=== PATIENT | male | born 1950 | race Caucasian/White ===

== ENCOUNTER 2016-12-11 08:50 | Day surgery (SDC) | payer OTHER ==
[2016-12-11] MEDS ORDERED: LACTATED RINGERS 1,000 ML IV ONE ×2 (09:05→12:20)
[2016-12-11] MEDS ORDERED: fentaNYL 250 MCG/5 ML VIAL IVP ONE (12:25)
[2016-12-11] MEDS ORDERED: MIDAZOLAM 2 MG/2 ML VIAL IVP ONE (12:25)
== END 2016-12-11 08:51 | disposition home or self-care (01) ==
PROC: 0DBN8ZX Excision of Sigmoid Colon, Via Natural or Artificial Opening Endoscopic, Diagnostic (ICD-10-PCS; principal; 2016-12-11 10:00)
DX: Z12.11 Encounter for screening for malignant neoplasm of colon (principal); D12.5 Benign neoplasm of sigmoid colon; K57.30 Diverticulosis of large intestine without perforation or abscess without bleeding; K64.8 Other hemorrhoids; I10 Essential (primary) hypertension; Z79.82 Long term (current) use of aspirin; Z80.8 Family history of malignant neoplasm of other organs or systems; Z82.49 Family history of ischemic heart disease and other diseases of the circulatory system; Z80.52 Family history of malignant neoplasm of bladder
CPT/HCPCS: 45380; J3010; J7120

== ENCOUNTER 2018-09-16 08:26 | Outpatient (CLI) | payer OTHER ==
[2018-09-16 12:17] LABS: BASOPHILS % (AUTO) 0.9 %; EOSINOPHILS # (AUTO) 0.2 10^3/uL (0.0-0.7); EOSINOPHILS % (AUTO) 3.7 %; HGB - HEMOGLOBIN 13.7 g/dL (14.0-18.0); LYMPHOCYTES # (AUTO) 1.7 10^3/uL (1.5-3.5); LYMPHOCYTES % (AUTO) 33.4 %; MEAN CORPUSCULAR HEMOGLOBIN 29.8 pg (27.0-31.0); MEAN CORPUSCULAR HGB CONC 35.7 g/dL (32.0-36.0); MEAN CORPUSCULAR VOLUME 83.5 fL (80.0-94.0); MEAN PLATELET VOLUME 8.3 fL (7.4-11.4); MONOCYTES # (AUTO) 0.4 10^3/uL (0.0-1.0); MONOCYTES % (AUTO) 7.6 %; NEUTROPHILS # (AUTO) 2.8 10^3/uL (1.5-6.6); NEUTROPHILS % (AUTO) 54.4 %; PLT - PLATELET COUNT 160 10^3/uL (130-450); RED BLOOD COUNT 4.59 10^6/uL (4.70-6.10); RED CELL DISTRIBUTION WIDTH 13.8 % (12.0-15.0); WHITE BLOOD COUNT 5.1 x10^3/uL (4.8-10.8)
[2018-09-16 13:15] LABS: ALBUMIN 3.8 g/dL (3.2-5.5); ALBUMIN/GLOBULIN RATIO 1.4 (1.0-2.2); ALKALINE PHOSPHATASE 57 IU/L (42-121); ALT ALANINE AMINOTRANSFERASE 25 IU/L (10-60); AST ASPARTATE AMINOTRANSFERASE 26 IU/L (10-42); BILIRUBIN,TOTAL 0.3 mg/dL (0.2-1.0); BUN - BLOOD UREA NITROGEN 15 mg/dL (6-20); CALCIUM 8.6 mg/dL (8.5-10.3); CARBON DIOXIDE - CO2 27 mmol/L (21-32); CHLORIDE 106 mmol/L (101-111); CHOLESTEROL 133 mg/dL; CREATININE 1.1 mg/dL (0.6-1.2); GFR - MDRD 66 (>89); GLUCOSE 95 mg/dL (70-100); HDL CHOLESTEROL 45 mg/dL; LDL CHOLESTEROL,CALCULATED 76 mg/dL; LDL/HDL RATIO 1.7 (<3.6); SODIUM 138 mmol/L (135-145); TOTAL PROTEIN 6.5 g/dL (6.7-8.2); VLDL CHOLESTEROL 12 mg/dL
== END 2018-09-16 23:59 | disposition home or self-care (01) ==
LOC: LAB.WCP 08:26
PROVIDERS: ATTEND Family Medicine
DX: I10 Essential (primary) hypertension (principal); Z79.899 Other long term (current) drug therapy; Z12.5 Encounter for screening for malignant neoplasm of prostate; R74.8 Abnormal levels of other serum enzymes
CPT/HCPCS: 36415; 80053; 80061; 82150; 83721; 84153; 84443; 85025

== ENCOUNTER 2018-09-20 11:23 | Outpatient (CLI) | payer OTHER ==
[2018-09-20 17:17] LABS: BILIRUBIN,URINE NEGATIVE (NEGATIVE); GLUCOSE, URINE (UA) NEGATIVE (NEGATIVE); KETONES,URINE (UA) NEGATIVE (NEGATIVE); LEUKOCYTE ESTERASE, URINE NEGATIVE (NEGATIVE); NITRITE,URINE NEGATIVE (NEGATIVE); OCCULT BLOOD,URINE NEGATIVE (NEGATIVE); PROTEIN,URINE NEGATIVE (NEGATIVE); UROBILINOGEN,URINE 0.2 (NORMAL) E.U./dL (NORMAL)
[2018-09-20 17:27] LABS: CLARITY,URINE CLEAR (CLEAR)
[2018-09-20 17:28] LABS: BACTERIA,URINE None Seen /HPF (None Seen); RBC,URINE None Seen /HPF (0-5); SQUAMOUS EPITHELIAL CELL,UR NONE SEEN (<= Few)
== END 2018-09-20 23:59 | disposition home or self-care (01) ==
LOC: LAB.WCP 11:23
PROVIDERS: ATTEND Family Medicine
DX: R74.8 Abnormal levels of other serum enzymes (principal); I10 Essential (primary) hypertension
CPT/HCPCS: 81001; 81599; 82150; 82570

== ENCOUNTER 2019-01-26 00:02 | Emergency (ER) | payer OTHER ==
[2019-01-26 00:11] VITALS: BP 173/96
--- NOTE | 2019-01-26 01:02 | ED Physician Documentation ---
History of Present Illness - Stated complaint Stated Complaint: EYE PX - Chief complaint Chief Complaint: Heent - History obtained from History obtained from: Patient - History of Present Illness Timing: Prior to arrival - Additonal information Additional information: Patient is a 68-year-old male with history of eye disease presenting with right eye discomfort after rubbing it earlier tonight. Patient reports being outside and gardening earlier today and is concerned about possibly accidentally scratching his eye this evening. Patient denies significant changes in vision. He reports poor vision in both eyes chronically. He states that he normally gets injections in the eye, but is unable to further identify his underlying disease process such as back or degeneration or glaucoma. Patient does not wear contacts, but does wear reading glasses. Patient reports watery discharge from the right eye, as well as mild conjunctival erythema. Patient also reports mild right upper and lower eyelid swelling and erythema. Patient states that his pain is when his eyelid is closed only.No other worsening or improving factors to his symptoms noted. Review of Systems Eyes: reports: Irritation. denies: Loss of vision, Discharge PD PAST MEDICAL HISTORY - Past Medical History Cardiovascular: Hypertension Respiratory: None Endocrine/Autoimmune: None GI: None : None HEENT: Other Psych: None Musculoskeletal: None Derm: None - Past Surgical History General: Colonoscopy Neuro: Other HEENT: Other - Present Medications Home Medications: Ambulatory Orders Medication Instructions Recorded Confirmed RX: Lisinopril 20 mg ORAL DAILY 12/08/16 12/11/16 Aspirin [Aspir-Low] 81 mg PO DAILY 12/11/16 12/11/16 Erythromycin Base [Erythromycin 1 gm OP Q6HR 5 Days #1 oint...g. 01/26/19 Ophthalmic Ointment] - Allergies Allergies/Adverse Reactions: Allergies Allergy/AdvReac Type Severity Reaction Status Date / Time No Known Drug Allergies Allergy Verified 01/26/19 00:08 - Social History Does the pt smoke?: No Smoking Status: Never smoker PD ED PE NORMAL - General General: Alert and oriented X 3, No acute distress, Well developed/nourished - HEENT HEENT: Atraumatic, PERRL (Left eye unremarkable. Mild periorbital swelling and erythema, likely due to rubbing, of right eye. Eversion of right upper and lower eyelids did not reveal foreign body. Fluorescein exam of right eye reveals mild uptake centrally. No nystagmus or pain with extraocular movements of right eye. Pupils unremarkable.OD:20/70, OS: 20/30, OU:20/25), EOMI - Respiratory Respiratory: No respiratory distress - Derm Derm: Normal color, Warm and dry, No rash - Extremities Extremities: No deformity, No tenderness to palpate - Neuro Neuro: Alert and oriented X 3, No motor deficit, No sensory deficit - Psych Psych: Normal mood, Normal affect Results - Vitals Vitals: Vital Signs - 24 hr 01/26/19 00:06 Temperature 36.3 C L Heart Rate 61 Respiratory 16 Rate Blood Pressure 173/96 H O2 Saturation 99 Oxygen O2 Source Room air PD MEDICAL DECISION MAKING - ED course Complexity details: considered differential, d/w patient ED course: Most concerning for foreign body or corneal abrasion given mechanism of injury. Patient does report history of poor vision and eye issues in both eyes, but cannot further specify. Did not feel the patient is experiencing acute glaucoma, acute complication of macular degeneration, vascular occlusion, or central complication. Do not find evidence of uveitis, iritis, conjunctivitis. Do not find retained foreign body, but do see a small area of likely corneal abrasion. Discussed this etiology, as well as treatment for such, supportive cares, return precautions, need for close follow-up. Patient reports that he will follow-up with his community action worker in the next several days. Otherwise, patient is c omfortable with this discharge plan. Departure - Departure Disposition: 01 Home, Self Care Clinical Impression: Corneal abrasion Condition: Good Instructions: ED Eye Injury Corneal Abrasion Follow-Up: your,community action worker [Other] - Within 3 Days Prescriptions: Erythromycin Base [Erythromycin Ophthalmic Ointment] 1 gm OP Q6HR 5 Days #1 oint...g. Comments: May apply ice to help with eyelid swelling, as well as take ibuprofen, Tylenol, Excedrin as needed to help relieve discomfort. Please use eye ointment as instructed to help heal corneal abrasion and prevent infection. Please follow- up with your assistant auditor or community action worker in the next 2 to 3 days return to ED sooner if experience worsening symptoms or other concerns. Discharge Date/Time: 01/26/19 01:27
[2019-01-26] MEDS ORDERED: PROPARACAINE 0.5% OPHTH DROPS 15 ML RIGHTEYE STA (01:06)
== END 2019-01-26 01:27 | disposition home or self-care (01) ==
LOC: ED 00:02
DX: S05.01XA Injury of conjunctiva and corneal abrasion without foreign body, right eye, initial encounter (principal); X58.XXXA Exposure to other specified factors, initial encounter; Y93.H2 Activity, gardening and landscaping; I10 Essential (primary) hypertension; Z79.82 Long term (current) use of aspirin
CPT/HCPCS: 99283; J3490

== ENCOUNTER 2019-05-12 16:29 | Outpatient (CLI) | payer OTHER ==
--- NOTE | 2019-05-14 16:14 | Ultrasound Report ---
Reason: HTN,DIZZINESS Procedure Date: 05/12/2019 Accession Number: [id number] / [id number] Procedure: US - Carotid Doppler Complete CPT Code: FULL RESULT: EXAM: BILATERAL CAROTID AND VERTEBRAL ARTERY DUPLEX DOPPLER ULTRASOUND: EXAM DATE: 05/12/2019 05:00 PM CLINICAL HISTORY: Hypertension. Dizziness. COMPARISON: None. TECHNIQUE: Grayscale imaging, color Doppler, and duplex spectral Doppler were used to evaluate the carotid and vertebral arteries bilaterally. Static images were obtained. FINDINGS: Minimal plaque is identified in the carotid arteries bilaterally. Normal antegrade flow is present in bilateral vertebral arteries. VELOCITIES (cm/sec): Right CCA mid: PSV 64 cm/sec CCA dist: PSV 62 cm/sec ICA prox: PSV 40 cm/sec, EDV 11.9 cm/sec ICA mid: PSV 48 cm/sec, EDV 22.4 cm/sec ICA dist: PSV 50.8 cm/sec, EDV 20 cm/sec ECA: PSV 68 cm/sec Vert: PSV 62 cm/sec ICA/CCA: .8 Left CCA mid: PSV 62 cm/sec CCA dist: PSV 76 cm/sec ICA prox: PSV 63 cm/sec, EDV 16 cm/sec ICA mid: PSV 45 cm/sec, EDV 23 cm/sec ICA dist: PSV 74 cm/sec, EDV 31 cm/sec ECA: PSV 85 cm/sec Vert: PSV 69 cm/sec ICA/CCA: 1 ICA diameter stenosis: Right: <50% by velocity and <70% by NASCET criteria. Left: <50% by velocity and <70% by NASCET criteria. IMPRESSION: 1. Minimal bilateral carotid artery plaquing. 2. In the right carotid artery there are no elevated carotid artery velocities to suggest hemodynamically significant stenosis. 3. In the left carotid artery there are no elevated carotid artery velocities to suggest hemodynamically significant stenosis. 4. Normal antegrade flow is present in bilateral vertebral arteries. General Recommendations: Stenosis =50% ICA - Follow-up ultrasound 6-12 months Stenosis <50% ICA - High Risk Patient with plaque - Follow-up ultrasound 1-2 years Normal Study but High Risk Patient - Follow-up ultrasound 3-5 years Management recommendations and diagnostic criteria are based on current IAC endorsed standards in Carotid Artery Stenosis: Grayscale and Doppler Ultrasound Diagnosis. Validated velocity measurements with angiographic measurements and velocity criteria are extrapolated from diameter data as defined by the Society of Radiologists in Ultrasound Consensus Conference Radiology 2003; 229;340-346. RADIA
== END 2019-05-12 16:30 | disposition home or self-care (01) ==
LOC: DI 16:29
PROVIDERS: ATTEND Family Medicine
DX: I10 Essential (primary) hypertension (principal); R42 Dizziness and giddiness
CPT/HCPCS: 93880

== ENCOUNTER 2019-09-12 08:22 | Outpatient (CLI) | payer OTHER ==
[2019-09-12 12:40] LABS: BASOPHILS % (AUTO) 0.6 %; EOSINOPHILS # (AUTO) 0.2 10^3/uL (0.0-0.7); EOSINOPHILS % (AUTO) 3.4 %; HGB - HEMOGLOBIN 14.3 g/dL (14.0-18.0); LYMPHOCYTES # (AUTO) 1.7 10^3/uL (1.5-3.5); LYMPHOCYTES % (AUTO) 31.4 %; MEAN CORPUSCULAR HEMOGLOBIN 28.9 pg (27.0-31.0); MEAN CORPUSCULAR HGB CONC 33.2 g/dL (32.0-36.0); MEAN CORPUSCULAR VOLUME 87.2 fL (80.0-94.0); MEAN PLATELET VOLUME 10.2 fL (7.4-11.4); MONOCYTES # (AUTO) 0.5 10^3/uL (0.0-1.0); MONOCYTES % (AUTO) 9.1 %; NEUTROPHILS # (AUTO) 2.9 10^3/uL (1.5-6.6); NEUTROPHILS % (AUTO) 54.9 %; PLT - PLATELET COUNT 154 10^3/uL (130-450); RED BLOOD COUNT 4.94 10^6/uL (4.70-6.10); RED CELL DISTRIBUTION WIDTH 13.7 % (12.0-15.0); WHITE BLOOD COUNT 5.3 x10^3/uL (4.8-10.8)
[2019-09-12 12:56] LABS: ALBUMIN 4.2 g/dL (3.2-5.5); ALBUMIN/GLOBULIN RATIO 1.4 (1.0-2.2); ALKALINE PHOSPHATASE 54 IU/L (42-121); ALT ALANINE AMINOTRANSFERASE 24 IU/L (10-60); AST ASPARTATE AMINOTRANSFERASE 21 IU/L (10-42); BILIRUBIN,TOTAL 0.7 mg/dL (0.2-1.0); BUN - BLOOD UREA NITROGEN 23 mg/dL (6-20); CALCIUM 8.9 mg/dL (8.5-10.3); CARBON DIOXIDE - CO2 28 mmol/L (21-32); CHLORIDE 105 mmol/L (101-111); CHOL/HDL RATIO 3.7 (<5.0); CHOLESTEROL 151 mg/dL; CREATININE 1.2 mg/dL (0.6-1.2); GFR - MDRD 60 (>89); GLUCOSE 93 mg/dL (70-100); HDL CHOLESTEROL 41 mg/dL; LDL CHOLESTEROL,CALCULATED 96 mg/dL; LDL/HDL RATIO 2.3 (<3.6); SODIUM 138 mmol/L (135-145); TOTAL PROTEIN 7.2 g/dL (6.7-8.2); VLDL CHOLESTEROL 14 mg/dL
== END 2019-09-12 23:59 | disposition home or self-care (01) ==
LOC: LAB.WCP 08:22
PROVIDERS: ATTEND Physician Assistant Medical
DX: I10 Essential (primary) hypertension (principal)
CPT/HCPCS: 36415; 80053; 80061; 83721; 85025

== ENCOUNTER 2021-08-10 08:00 | Outpatient (CLI) | payer OTHER | END 2021-08-10 23:59 | disposition home or self-care (01) | LOC: LAB.N 08:00 | PROVIDERS: ATTEND Physician Assistant | DX: U07.1 COVID-19 (principal) | CPT/HCPCS: 87070 ==

== ENCOUNTER 2021-08-12 09:23 | Emergency (ER) | payer OTHER ==
--- NOTE | 2021-08-12 09:42 | ED Physician Documentation ---
History of Present Illness - Stated complaint Stated Complaint: COVID - Chief complaint Chief Complaint: Resp - History obtained from History obtained from: Patient - Additonal information Additional information: This is a relatively healthy 70-year-old gentleman who presents via private vehicle requesting antibody therapy for coronavirus. He was not vaccinated against coronavirus. He has been sick for 5 days with body aches and sore throat. Mild cough. No shortness of breath or fevers. Tested 2 days ago and positive. Review of Systems Constitutional: reports: Chills, Myalgias, Fatigue Nose: denies: Rhinorrhea / runny nose Throat: reports: Sore throat GI: denies: Abdominal Pain, Nausea, Diarrhea PD PAST MEDICAL HISTORY - Past Medical History Cardiovascular: Hypertension Respiratory: None Endocrine/Autoimmune: None GI: None : None HEENT: Other Psych: None Musculoskeletal: None Derm: None - Past Surgical History General: Colonoscopy Neuro: Other HEENT: Other - Present Medications Home Medications: Ambulatory Orders Medication Instructions Recorded Confirmed Lisinopril 20 mg ORAL DAILY 12/08/16 12/11/16 Aspirin [Aspir-Low] 81 mg PO DAILY 12/11/16 12/11/16 Erythromycin Base [Erythromycin 1 gm OP Q6HR 5 Days #1 oint...g. 01/26/19 Ophthalmic Ointment] - Allergies Allergies/Adverse Reactions: Allergies Allergy/AdvReac Type Severity Reaction Status Date / Time No Known Drug Allergies Allergy Verified 08/12/21 09:35 - Social History Does the pt smoke?: No Smoking Status: Never smoker PD ED PE NORMAL - Vitals Vital signs reviewed: Yes - General General: Alert and oriented X 3, No acute distress - Cardiac Cardiac: RRR, No murmur - Respiratory Respiratory: No respiratory distress, Clear bilaterally - Abdomen Abdomen: Non tender - Derm Derm: Normal color, Warm and dry - Neuro Neuro: Alert and oriented X 3, Normal speech Results - Vitals Vitals: Vital Signs - 24 hr 08/12/21 10:38 Temperature 37.4 C Heart Rate 88 Respiratory 18 Rate Blood Pressure 140/86 H O2 Saturation 95 Oxygen O2 Source Room air PD MEDICAL DECISION MAKING - ED course ED course: Mab therapy for this patient with Covid was considered and discussed with the patient. The patient was provided the handout: ``Casirivimab plus Imdevimab Fact Sheet for Patients, Parents and Caregivers, and the information within was discussed with the patient. The patient was informed of alternatives prior to receiving Mab therapy. The patient was informed that these medications are unapproved drugs that are authorized for use under Emergency Use Authorization by the FDA. The patient will be monitored for at least 1 hour after infusion is complete. Departure - Departure Disposition: Home, Self Care Clinical Impression: COVID-19 Condition: Stable Record reviewed to determine appropriate education?: Yes Instructions: ED Viral Syndrome Comments: You were seen today for COVID-19. Thankfully you are not too sick at this point. You received monoclonal antibody therapy with [facility]. Your period of mandatory quarantine extends 2 weeks from last Sunday. I do strongly recommend in the future vaccination against COVID-19, the mRNA vaccines are very safe and well-tolerated and effective and Covid is still kil ling people. Return if you worsen or see blood oxygen levels persistently below 92% or so.
[2021-08-12] MEDS ORDERED: CASIRIVIMAB/IMDEVIMAB 10 ML in SODIUM CHLORIDE 0.9% 50 ML IV ONE (10:15)
[2021-08-12 11:48] VITALS: BP 145/87
== END 2021-08-12 11:52 | disposition home or self-care (01) ==
LOC: ED 09:23
DX: U07.1 COVID-19 (principal); I10 Essential (primary) hypertension; Z79.82 Long term (current) use of aspirin
CPT/HCPCS: 99281; 99283; J7040; M0243; Q0244

== ENCOUNTER 2021-10-21 07:09 | Outpatient (CLI) | payer OTHER ==
[2021-10-21 11:51] LABS: BASOPHILS # (AUTO) 0.1 10^3/uL (0.0-0.1); BASOPHILS % (AUTO) 0.9 %; EOSINOPHILS # (AUTO) 0.2 10^3/uL (0.0-0.7); EOSINOPHILS % (AUTO) 3.7 %; HCT - HEMATOCRIT 41.4 % (42.0-52.0); HGB - HEMOGLOBIN 13.8 g/dL (14.0-18.0); LYMPHOCYTES # (AUTO) 1.7 10^3/uL (1.5-3.5); LYMPHOCYTES % (AUTO) 30.4 %; MEAN CORPUSCULAR HEMOGLOBIN 29.3 pg (27.0-31.0); MEAN CORPUSCULAR HGB CONC 33.3 g/dL (32.0-36.0); MEAN CORPUSCULAR VOLUME 87.9 fL (80.0-94.0); MEAN PLATELET VOLUME 10.8 fL (7.4-11.4); MONOCYTES # (AUTO) 0.5 10^3/uL (0.0-1.0); MONOCYTES % (AUTO) 9.4 %; NEUTROPHILS # (AUTO) 3.1 10^3/uL (1.5-6.6); NEUTROPHILS % (AUTO) 55.1 %; PLT - PLATELET COUNT 169 10^3/uL (130-450); RED BLOOD COUNT 4.71 10^6/uL (4.70-6.10); RED CELL DISTRIBUTION WIDTH 13.4 % (12.0-15.0); WHITE BLOOD COUNT 5.6 x10^3/uL (4.8-10.8)
[2021-10-21 12:13] LABS: ALBUMIN 3.9 g/dL (3.2-5.5); ALBUMIN/GLOBULIN RATIO 1.5 (1.0-2.2); ALKALINE PHOSPHATASE 53 IU/L (42-121); ALT ALANINE AMINOTRANSFERASE 27 IU/L (10-60); AST ASPARTATE AMINOTRANSFERASE 24 IU/L (10-42); BILIRUBIN,TOTAL 0.7 mg/dL (0.2-1.0); BUN - BLOOD UREA NITROGEN 20 mg/dL (6-20); CALCIUM 8.9 mg/dL (8.5-10.3); CARBON DIOXIDE - CO2 28 mmol/L (21-32); CHLORIDE 104 mmol/L (101-111); CHOL/HDL RATIO 2.8 (<5.0); CHOLESTEROL 134 mg/dL; CREATININE 1.1 mg/dL (0.6-1.2); GFR - MDRD 66 (>89); GLUCOSE 94 mg/dL (70-100); HDL CHOLESTEROL 48 mg/dL; LDL CHOLESTEROL,CALCULATED 75 mg/dL; LDL/HDL RATIO 1.6 (<3.6); POTASSIUM 4.4 mmol/L (3.5-5.0); SODIUM 139 mmol/L (135-145); TOTAL PROTEIN 6.5 g/dL (6.7-8.2); TRIGLYCERIDES 56 mg/dL; VLDL CHOLESTEROL 11 mg/dL
[2021-10-21 12:27] LABS: THYROID STIMULATING HORMONE 2.85 uIU/mL (0.34-5.60)
== END 2021-10-21 07:10 | disposition home or self-care (01) ==
LOC: LAB.N 07:09
PROVIDERS: ATTEND Physician Assistant Medical
DX: I10 Essential (primary) hypertension (principal); Z12.5 Encounter for screening for malignant neoplasm of prostate; R74.8 Abnormal levels of other serum enzymes
CPT/HCPCS: 36415; 80053; 80061; 82150; 83721; 84153; 84443; 85025

== ENCOUNTER 2021-11-09 15:11 | Outpatient (CLI) | payer OTHER ==
--- NOTE | 2021-11-09 16:39 | Ultrasound Report ---
PROCEDURE: Abdomen Limited INDICATIONS: HYPERAMYLASEMIA TECHNIQUE: Real-time focused scanning was performed of the abdomen, with image documentation. COMPARISON: January 05, 2010. FINDINGS: AORTA: The visualized abdominal aorta is normal. IVC: The visualized IVC is normal. LIVER: Heterogeneous echotexture of the liver. Measures 13.5 cm in length. A 1.2 x 1.4 x 1.1 cm ech ogenic focus is seen in the right hepatic lobe, most consistent with a hemangioma. PANCREAS: The visualized portions of the pancreas are normal. Gallbladder and biliary tree: No gallbladder wall thickening, pericholecystic fluid, or shadowing g allstones. The common bile duct measures 4.4 mm. RIGHT KIDNEY: Normal in appearance with no hydronephrosis. Measuring 12.1 cm in length. The renal c ortex thickness measures 1.7 cm. No ascites. IMPRESSION: 1.No acute right upper quadrant sonographic abnormality. Reviewed by: Johnnie Ordonez MD on 11/09/2021 4:38 PM PST Approved by: Johnnie Ordonez MD on 11/09/2021 4:38 PM PST Station ID: [id number]
== END 2021-11-09 15:12 | disposition home or self-care (01) ==
LOC: DI 15:11
PROVIDERS: ATTEND Physician Assistant Medical
DX: R74.8 Abnormal levels of other serum enzymes (principal); Z80.8 Family history of malignant neoplasm of other organs or systems

== ENCOUNTER 2022-03-29 09:15 | Outpatient (CLI) | payer OTHER ==
--- NOTE | 2022-03-29 14:10 | XRAY Report ---
PROCEDURE: Thoracic Spine 3 View INDICATIONS: LUMBAGO TECHNIQUE: 3 views of the thoracic spine were acquired. COMPARISON: None. FINDINGS: Bones: No fractures or dislocations. Chronic mild intervertebral disc height loss and mild to modera te osteophytosis. No suspicious bony lesions. 12 pairs of ribs are noted, and appear intact where vi sualized. Soft tissues: No paravertebral stripe thickening. IMPRESSION: 1. No thoracic fractures. 2. Mild degenerative changes. Reviewed by: Martita Darling MD on 03/29/2022 2:09 PM PDT Approved by: Martita Darling MD on 03/29/2022 2:09 PM PDT Station ID: [id number]
--- NOTE | 2022-03-29 14:11 | XRAY Report ---
PROCEDURE: Lumbar Spine 2 View INDICATIONS: LUMBAGO TECHNIQUE: 3 views of the lumbar spine were acquired. COMPARISON: None. FINDINGS: Bones: 5 [id number]-mlaafss vertebrae are present. Mild L2-3 disc height loss and trace retrolisthesis . Mild L1-2 disc height loss. Mild anterior bridging osteophytes at all levels. There is normal bony alignment. No vertebral body compression fractures. No suspicious bony lesions. Soft tissues: Overlying bowel gas pattern is normal. No suspicious soft tissue calcifications. IMPRESSION: 1. Mild degenerative changes. Reviewed by: Martita Darling MD on 03/29/2022 2:10 PM PDT Approved by: Martita Darling MD on 03/29/2022 2:10 PM PDT Station ID: [id number]
== END 2022-03-29 09:16 | disposition home or self-care (01) ==
LOC: DI.N 09:15
PROVIDERS: ATTEND Physician Assistant Medical
DX: M51.34 Other intervertebral disc degeneration, thoracic region (principal); M47.814 Spondylosis without myelopathy or radiculopathy, thoracic region; M51.36 Other intervertebral disc degeneration, lumbar region; M47.816 Spondylosis without myelopathy or radiculopathy, lumbar region; M43.16 Spondylolisthesis, lumbar region

== ENCOUNTER 2022-07-17 08:00 | Outpatient (CLI) | payer OTHER ==
--- NOTE | 2022-07-17 14:17 | XRAY Report ---
PROCEDURE: Finger(s) LT INDICATIONS: L 4TH DIGIT PX AND SWELLING TECHNIQUE: AP hand, 2 views of the fourth finger(s) acquired. COMPARISON: None. FINDINGS: Bones: No fractures or dislocations. Interphalangeal joint space narrowing. No suspicious bony lesio ns. Soft tissues: No suspicious soft tissue calcifications. IMPRESSION: No fourth digit fracture demonstrated. Mild to moderate degenerative change. Reviewed by: Lencho Carlton MD on 07/17/2022 2:15 PM PDT Approved by: Lencho Carlton MD on 07/17/2022 2:15 PM PDT Station ID: [id number]
== END 2022-07-17 23:59 | disposition home or self-care (01) ==
LOC: DI.N 08:00
PROVIDERS: ATTEND Physician Assistant
DX: M19.042 Primary osteoarthritis, left hand (principal)

== ENCOUNTER 2022-08-17 13:00 | Outpatient (CLI) | payer OTHER ==
[2022-08-17 18:22] LABS: ALBUMIN/GLOBULIN RATIO 1.4 (1.0-2.2); BILIRUBIN,TOTAL 0.5 mg/dL (0.2-1.0); CALCIUM 9.2 mg/dL (8.5-10.3); CREATININE 1.2 mg/dL (0.6-1.2); POTASSIUM 4.7 mmol/L (3.5-5.0); TOTAL PROTEIN 6.8 g/dL (6.7-8.2)
== END 2022-08-17 13:01 | disposition home or self-care (01) ==
LOC: LAB.N 13:00
PROVIDERS: ATTEND Physician Assistant Medical
DX: B35.2 Tinea manuum (principal)
CPT/HCPCS: 36415; 80053

== ENCOUNTER 2023-10-31 14:35 | Outpatient (CLI) | payer OTHER ==
[2023-10-31 18:04] LABS: BASOPHILS # (AUTO) 0.1 10^3/uL (0.0-0.1); BASOPHILS % (AUTO) 0.9 %; EOSINOPHILS # (AUTO) 0.1 10^3/uL (0.0-0.7); EOSINOPHILS % (AUTO) 2.1 %; HCT - HEMATOCRIT 40.9 % (42.0-52.0); HGB - HEMOGLOBIN 13.8 g/dL (14.0-18.0); LYMPHOCYTES # (AUTO) 1.8 10^3/uL (1.5-3.5); LYMPHOCYTES % (AUTO) 27.6 %; MEAN CORPUSCULAR HEMOGLOBIN 29.6 pg (27.0-31.0); MEAN CORPUSCULAR HGB CONC 33.7 g/dL (32.0-36.0); MEAN CORPUSCULAR VOLUME 87.6 fL (80.0-94.0); MEAN PLATELET VOLUME 10.2 fL (7.4-11.4); MONOCYTES # (AUTO) 0.6 10^3/uL (0.0-1.0); MONOCYTES % (AUTO) 8.8 %; NEUTROPHILS # (AUTO) 3.8 10^3/uL (1.5-6.6); NEUTROPHILS % (AUTO) 60.1 %; PLT - PLATELET COUNT 162 10^3/uL (130-450); RED BLOOD COUNT 4.67 10^6/uL (4.70-6.10); RED CELL DISTRIBUTION WIDTH 13.2 % (12.0-15.0); WHITE BLOOD COUNT 6.3 x10^3/uL (4.8-10.8)
[2023-10-31 18:21] LABS: ALBUMIN 4.2 g/dL (3.2-5.5); ALBUMIN/GLOBULIN RATIO 1.6 (1.0-2.2); ALKALINE PHOSPHATASE 63 IU/L (42-121); ALT ALANINE AMINOTRANSFERASE 21 IU/L (10-60); AST ASPARTATE AMINOTRANSFERASE 20 IU/L (10-42); BILIRUBIN,TOTAL 0.6 mg/dL (0.2-1.0); BUN - BLOOD UREA NITROGEN 19 mg/dL (6-20); CALCIUM 9.5 mg/dL (8.5-10.3); CARBON DIOXIDE - CO2 29 mmol/L (21-32); CHLORIDE 106 mmol/L (101-111); CHOL/HDL RATIO 2.9 (<5.0); CHOLESTEROL 133 mg/dL; CREATININE 1.2 mg/dL (0.6-1.3); GFR - MDRD 59 (>89); GLUCOSE 89 mg/dL (74-104); HDL CHOLESTEROL 46 mg/dL; LDL CHOLESTEROL,CALCULATED 65 mg/dL; LDL/HDL RATIO 1.4 (<3.6); POTASSIUM 4.6 mmol/L (3.5-4.5); SODIUM 139 mmol/L (135-145); TOTAL PROTEIN 6.8 g/dL (6.4-8.9); TRIGLYCERIDES 112 mg/dL (48-352); VLDL CHOLESTEROL 22 mg/dL
== END 2023-10-31 14:36 | disposition home or self-care (01) ==
LOC: LAB.N 14:35
PROVIDERS: ATTEND Physician Assistant Medical
DX: I10 Essential (primary) hypertension (principal)
CPT/HCPCS: 36415; 80053; 80061; 83721; 85025